=== PATIENT | male | born 1960 | race Caucasian/White ===

== ENCOUNTER → 2017-07-30 | Outpatient (CLI) | payer MEDICARE, OTHER | LOC: M.ULTRA 11:11 | DX: N28.9 Disorder of kidney and ureter, unspecified (principal); Z94.0 Kidney transplant status; R97.20 Elevated prostate specific antigen [PSA] ==

== ENCOUNTER → 2018-09-15 | Outpatient (CLI) | payer MEDICARE, OTHER | LOC: M.ULTRA 09:28 | DX: N28.1 Cyst of kidney, acquired (principal) ==

== ENCOUNTER → 2019-09-22 | Outpatient (CLI) | payer MEDICARE, OTHER | LOC: M.ULTRA 10:19 | DX: N28.1 Cyst of kidney, acquired (principal); N28.89 Other specified disorders of kidney and ureter ==